=== PATIENT | female | born 1970 | race Caucasian/White ===

== ENCOUNTER → 2022-06-08 | Day surgery (SDC) | payer OTHER ==
[~2022-06-08] MED LIST: ACETAMINOPHEN 1000 MG/100 ML 100 ML IV ONE; CEFAZOLIN SODIUM 2 GM ONE; CYCLOBENZAPRINE5 MG PO; DEXAMETHASONE SOD PHOS 10 MG/1 ML VIAL ONE; DEXAMETHASONE SOD PHOS INJ 4 MG/ML SDV ONE; FENTANYL CITRATE/PF 100MCG/2 ML INJ ONE; HYDROCODON-ACE1 EAC9 PO; KETOROLAC TROMETHAMINE 30 MG/ML VIAL ONE; LABETALOL HCL 20 ML ONE; LACTATED RINGER'S 1,000 ML ONE; LIDOCAINE HCL 2% LOCAL INJ 5 ML SDV VIAL INJ ONE; MIDAZOLAM HCL 2 MG/2 ML VIAL ONE; MS CONTIN15 MG PO; NEURONTIN300 MG PO; OMEPRAZOLE40 MG PO; ONDANSETRON HCL INJ 2MG/ML 2ML 2 MG/ML VIAL ONE; POVIDONE IODINE 0.05% 0.05 % ML PO ONE; PROPOFOL IV EMULSION 10 MG/ML 20 ML VIAL ONE; ROPIVACAINE 0.5% 5 MG/ML 30 ML SDV ONE; SEVOFLURANE INHAL SOLN 250 ML PEN BTL ONE; TIZANIDINE HCL4 MG PO
[2022-06-08] MEDS: FENTANYL CITRATE/PF 100MCG/2 ML INJ ONE ×2 (12:05→12:10)
[2022-06-08] MEDS: HYDROMORPHONE 1MG/1ML INJ ONE ×2 (12:32→12:38)
[2022-06-08 13:10] VITALS: BP 128/88
== END | disposition home or self-care (01) ==
LOC: OR 07:52
PROVIDERS: ATTEND Orthopaedic Surgery
DX: S52.572A Other intraarticular fracture of lower end of left radius, initial encounter for closed fracture (principal); W19.XXXA Unspecified fall, initial encounter; Z82.61 Family history of arthritis
CPT/HCPCS: 71046; 93005; C1713; C1769; J1100; J1170; J1885; J2001; J2250; J2405; J2795